=== PATIENT | male | born 1960 | race Caucasian/White ===

== ENCOUNTER 2017-12-12 08:26 | Day surgery (SDC) | payer MEDICARE, BC ==
[~2017-12-12 08:26] MED LIST: LIDOCAINE 2% (SDV) 5 ML INJ; ONDANSETRON 4 MG INJ; PROPOFOL 200 MG INJ
[2017-12-12] MEDS ORDERED: CEFAZOLIN 2 GM/50 ML (PMX) 50 ML IVPB (10:00)
[2017-12-12] MEDS ORDERED: FENTAnyl 50 MCG/ML VIAL (11:17)
[2017-12-12] MEDS ORDERED: METOCLOPRAMIDE 10 MG INJ (11:18)
[2017-12-12] MEDS ORDERED: MIDAZOLAM 1 MG/ML 2 ML INJ (11:18)
[2017-12-12] MEDS ORDERED: CEFAZOLIN 1 GM INJ (11:19)
[2017-12-12] MEDS ORDERED: SUCCINYLCHOLINE CHLORIDE 100 MG/5 ML SYG IV (11:22)
[2017-12-12] MEDS ORDERED: ROCURONIUM 50 MG INJ (11:22)
[2017-12-12] MEDS ORDERED: SUGAMMADEX SODIUM 200 MG/2 ML VIAL IV ×2 (11:22→12:59)
[2017-12-12] MEDS ORDERED: EPINEPHrine 1 MG INJ (11:23)
[2017-12-12] MEDS ORDERED: ROPIVACAINE 0.5 % 30 ML VIAL (11:55)
[2017-12-12] MEDS ORDERED: IPRATROPIUM (NEB) 0.5 MG/2.5 ML AMP HHN (12:30)
[2017-12-12] MEDS ORDERED: HYDROmorphONE 1 MG/5 ML IV SYRINGE IV (12:30)
[2017-12-12] MEDS ORDERED: FENTAnyl 50 MCG/ML VIAL IV ×2 (12:30)
[2017-12-12] MEDS ORDERED: DIPHENHYDRAMINE 50 MG INJ IV (12:30)
[2017-12-12] MEDS ORDERED: LABETALOL HCL 20MG INJ IV (12:30)
[2017-12-12] MEDS ORDERED: KETOROLAC 30 MG INJ IV (12:30)
[2017-12-12] MEDS ORDERED: hydrALAzine 20 MG INJ IV (12:30)
[2017-12-12] MEDS ORDERED: HYDROmorphONE 2 MG/ML SYG (12:51)
[2017-12-12] MEDS: POLYMYXIN/BACITRACIN 1L IRRIG (12:52)
[2017-12-12] MEDS: BUPIVACAINE 0.25% (MPF) 30 ML INJ (12:52)
[2017-12-12] MEDS ORDERED: HYDROCODONE/APAP (5/325) TAB PO (13:30)
[2017-12-12] MEDS: MEPERIDINE 25 MG INJ IV (13:36)
[2017-12-12] MEDS: HYDROmorphONE 1 MG/5 ML IV SYRINGE IV ×2 (13:43→13:50)
[2017-12-12] MEDS: SOD CHLORIDE 0.9% 1,000 ML IV (13:44)
[2017-12-12] MEDS: ONDANSETRON 4 MG INJ IV (13:50)
== END 2017-12-12 15:25 | disposition home or self-care (01) ==
LOC: SDS 08:26
DX: K43.6 Other and unspecified ventral hernia with obstruction, without gangrene (principal); I10 Essential (primary) hypertension; E78.5 Hyperlipidemia, unspecified
CPT/HCPCS: 49653; 88302